=== PATIENT | female | born 1995 | race Caucasian/White ===

== ENCOUNTER 2020-03-02 09:22 | Day surgery (SDC) | payer OTHER, SELFPAY ==
[~2020-03-02] VITALS: Ht 167.6 cm; Wt 80.7 kg
[2020-03-02] MEDS ORDERED: MIDAZOLAM 5 MG/5 ML VIAL ONE (11:27)
[2020-03-02] MEDS ORDERED: fentaNYL citrate 0.05 MG/ML VIAL ONE (11:27)
[2020-03-02] MEDS ORDERED: LIDOCAINE 2% 100 MG/5 ML UJET TP ONE (11:28)
[2020-03-02] MEDS ORDERED: MIDAZOLAM 2 MG/2 ML VIAL IVP ONE (12:30)
[2020-03-02] MEDS ORDERED: fentaNYL citrate 0.05 MG/ML VIAL IVP ONE (12:30)
== END 2020-03-02 12:50 | disposition home or self-care (01) ==
LOC: MDS 09:22 → MMU 09:23 → MDS 12:50
PROVIDERS: ATTEND Internal Medicine Gastroenterology
DX: R19.7 Diarrhea, unspecified (principal); R10.12 Left upper quadrant pain; K21.00 Gastro-esophageal reflux disease with esophagitis, without bleeding; K31.89 Other diseases of stomach and duodenum; Z20.828 Contact with and (suspected) exposure to other viral communicable diseases
CPT/HCPCS: 43235; 45380; 81025; 88305; J2250; J3010; U0003